=== PATIENT | male | born 1985 | race Caucasian/White ===

== ENCOUNTER 2017-01-01 21:40 | Emergency (ER) | payer SELFPAY ==
[2017-01-01 21:53] VITALS: BP 125/76
[2017-01-01] MEDS ORDERED: Acetaminop/Codeine 30 MG TAB* 1 TAB (300 MG/30 MG) PO ONE (22:01)
[2017-01-01] MEDS ORDERED: Amoxicillin PO (*) 500 MG CAP PO ONE (22:02)
--- NOTE | 2017-01-01 22:07 | UC ---
Dental HPI - HPI Summary HPI Summary: dental pain x 2 days right lower teeth no fever , no chills - History of Current Complaint Chief Complaint: UCDentalProblem Stated Complaint: DENTAL PAIN Time Seen by Provider: 01/01/17 21:58 Hx Obtained From: Patient Onset/Duration: Gradual Onset - 2, Lasting Days, Still Present Severity: Severe Aggravating: Heat, Cold, Chewing Alleviating: Nothing Dental: 1 - dental caries , poor dentation - Allergies/Home Medications Allergies/Adverse Reactions: Allergies Allergy/AdvReac Type Severity Reaction Status Date / Time No Known Allergies Allergy Verified 01/01/17 21:53 PMH/Surg Hx/FS Hx/Imm Hx Previously Healthy: Yes - Surgical History Surgical History: None - Family History Known Family History: Negative: Diabetes - Social History Alcohol Use: None Substance Use Type: None Smoking Status (MU): Heavy Every Day Tobacco Smoker Amount Used/How Often: 1pack per day Length of Time of Smoking/Using Tobacco: age 21 Review of Systems Constitutional: Negative Skin: Negative Eyes: Negative ENT: Dental Pain Respiratory: Negative All Other Systems Reviewed And Are Negative: Yes Physical Exam Triage Information Reviewed: Yes Appearance: Well-Appearing, No Pain Distress, Well-Nourished Vital Signs: Initial Vital Signs Temp 98.9 F 01/01/17 21:48 Pulse 63 01/01/17 21:48 Resp 16 01/01/17 21:48 BP 125/76 01/01/17 21:48 Pulse Ox 99 01/01/17 21:48 Vital Signs Reviewed: Yes Eyes: Positive: Conjunctiva Clear ENT: Positive: Normal ENT inspection, Hearing grossly normal, Pharynx normal Dental: Positive: Gross Decay/Caries @, Cellulitis @. Negative: Dental Fracture @, Abscess @, Bleeding Neck exam: Normal Neck: Positive: Supple, Nontender, No Lymphadenopathy Respiratory Exam: Normal Respiratory: Positive: Chest non-tender, Lungs clear, Normal breath sounds Cardiovascular: Positive: RRR, No Murmur, Pulses Normal Abdominal Exam: Normal Skin Exam: Normal Dental Complaint Course/Dx - Differential Dx/Diagnosis Provider Diagnoses: dental pain Discharge - Discharge Plan Condition: Stable Disposition: HOME Prescriptions: Acetaminop/Codeine 30 MG TAB* [Tylenol/Codeine 30 MG TAB*] 1 tab PO Q8H PRN #15 tab MDD 3 tabs PRN Reason: Pain Amoxicillin (*) 875 mg PO BID #20 tab Patient Education Materials: Toothache (ED) Referrals: No Primary Care Phys,NOPCP [Primary Care Provider] - Additional Instructions: follow up with a dentist [place]
== END 2017-01-01 22:11 | disposition home or self-care (01) ==
LOC: UCCORT 21:40
DX: K02.9 Dental caries, unspecified (principal); K08.89 Other specified disorders of teeth and supporting structures; F17.210 Nicotine dependence, cigarettes, uncomplicated
CPT/HCPCS: 99202; A9270-GY; G0463

== ENCOUNTER 2017-10-27 21:02 | Emergency (ER) | payer SELFPAY ==
[2017-10-27 22:03] VITALS: BP 117/71
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
== END 2017-10-27 22:55 | disposition home or self-care (01) ==
LOC: UCCORT 21:02
DX: S39.91XA Unspecified injury of abdomen, initial encounter (principal); Y04.2XXA Assault by strike against or bumped into by another person, initial encounter; Y93.9 Activity, unspecified; Y92.9 Unspecified place or not applicable; Y99.0 Civilian activity done for income or pay; R11.10 Vomiting, unspecified; F17.210 Nicotine dependence, cigarettes, uncomplicated
CPT/HCPCS: 99211; G0463

== ENCOUNTER 2017-11-25 13:12 | Emergency (ER) | payer SELFPAY ==
--- NOTE | 2017-11-25 13:16 | UC ---
Dental HPI - HPI Summary HPI Summary: 32 year old male presents with right lower molar abscess. - History of Current Complaint Stated Complaint: DENTAL COMPLAINT Time Seen by Provider: 11/25/17 13:16 Hx Obtained From: Patient Onset/Duration: Sudden Onset, Lasting Days Severity: Moderate Pain Scale Used: 0-10 Numeric - 7 - Allergies/Home Medications Allergies/Adverse Reactions: Allergies Allergy/AdvReac Type Severity Reaction Status Date / Time No Known Allergies Allergy Verified 11/25/17 13:33 PMH/Surg Hx/FS Hx/Imm Hx Previously Healthy: Yes - Surgical History Surgical History: None - Family History Known Family History: Negative: Diabetes - Social History Alcohol Use: Occasionally Substance Use Type: None Smoking Status (MU): Heavy Every Day Tobacco Smoker Type: Cigarettes Amount Used/How Often: 1/2 pack per day Length of Time of Smoking/Using Tobacco: age 21 Review of Systems Constitutional: Negative Skin: Negative Eyes: Negative ENT: Dental Pain Respiratory: Negative Cardiovascular: Negative Gastrointestinal: Negative Genitourinary: Negative Motor: Negative Neurovascular: Negative Musculoskeletal: Negative Neurological: Negative Psychological: Negative All Other Systems Reviewed And Are Negative: Yes Physical Exam Triage Information Reviewed: Yes Vital Signs Reviewed: Yes Eye Exam: Normal ENT: Positive: Dental tenderness Dental Exam: Normal Neck exam: Normal Neck: Positive: 1 Respiratory Exam: Normal Cardiovascular Exam: Normal Abdominal Exam: Normal Musculoskeletal Exam: Normal Neurological Exam: Normal Psychological Exam: Normal Skin Exam: Normal Dental Complaint Course/Dx - Differential Dx/Diagnosis Provider Diagnoses: right lower molar abscess Discharge - Discharge Plan Condition: Stable Disposition: HOME Prescriptions: Amoxicillin/Clavulanate TAB* [Augmentin TAB 875*] 875 mg PO BID #20 tab Chlorhexidine MOUTHWASH 0.12%* [Peridex Mouth Wash 0.12%*] 15 ml MT TID #1 btl Magic M W2 Alvaro/Maal/Nyst/Lido* 5 ml SWISH SPIT QID PRN #120 ml PRN Reason: Pain Naproxen [Naprosyn 500 mg] 500 mg PO BID PRN #30 tab PRN Reason: Pain Patient Education Materials: Dental Abscess (ED) Referrals: No Primary Care Phys,NOPCP [Primary Care Provider] -
[2017-11-25 13:40] VITALS: BP 141/71
== END 2017-11-25 13:41 | disposition home or self-care (01) ==
LOC: UCCORT 13:12
DX: K04.7 Periapical abscess without sinus (principal); Z72.0 Tobacco use; Z72.89 Other problems related to lifestyle
CPT/HCPCS: 99212; G0463

== ENCOUNTER 2018-06-14 21:39 | Emergency (ER) | payer OTHER ==
[2018-06-14 21:50] VITALS: BP 122/76
[2018-06-14] MEDS ORDERED: Fluconazole 100 MG TAB* TAB PO ONE (21:56)
--- NOTE | 2018-06-14 22:08 | UC ---
Skin Complaint HPI - HPI Summary HPI Summary: Pt c/o gradual onset of itchy, creamy white, skin between toes. Pt works outside standing in heavy workboots that have recently been getting wet and hot daily for past week. - History of Current Complaint Chief Complaint: UCSkin Time Seen by Provider: 06/14/18 21:51 Stated Complaint: LEFT FOOT COMPLAINT Hx Obtained From: Patient Onset/Duration: Gradual Onset, Lasting Days, Still Present, Worse Since - onset Skin Exposure Onset/Duration: Days Ago Timing: Constant Onset Severity: Mild Current Severity: Moderate Pain Intensity: 0 Location: Discrete, Foot (Right), Foot (Left) Character: Pruritus, Redness Aggravating Factor(s): Wet Conditions, Humidity Alleviating Factor(s): Unknown Associated Signs & Symptoms: Positive: Rash Related History: Possible Reaction to: Environmental Exposure - Allergy/Home Medications Allergies/Adverse Reactions: Allergies Allergy/AdvReac Type Severity Reaction Status Date / Time No Known Allergies Allergy Verified 06/14/18 21:44 Review of Systems Constitutional: Negative Skin: Rash Eyes: Negative ENT: Negative Respiratory: Negative Cardiovascular: Negative Gastrointestinal: Negative Genitourinary: Negative Motor: Negative Neurovascular: Negative Musculoskeletal: Negative Neurological: Negative Psychological: Negative Is Patient Immunocompromised?: No All Other Systems Reviewed And Are Negative: Yes PMH/Surg Hx/FS Hx/Imm Hx Previously Healthy: Yes - Surgical History Surgical History: None - Family History Known Family History: Negative: Diabetes - Social History Occupation: Employed Full-time Lives: With Family Alcohol Use: Occasionally Substance Use Type: None Smoking Status (MU): Heavy Every Day Tobacco Smoker Type: Cigarettes Amount Used/How Often: 1 PPD Length of Time of Smoking/Using Tobacco: age 21 Have You Smoked in the Last Year: Yes Household Exposure Type: Cigarettes Physical Exam Triage Information Reviewed: Yes Appearance: Well-Appearing Vital Signs: Initial Vital Signs Temp 98.2 F 06/14/18 21:45 Pulse 93 06/14/18 21:45 Resp 16 06/14/18 21:45 BP 122/76 06/14/18 21:45 Pulse Ox 100 06/14/18 21:45 Vital Signs Reviewed: Yes Eye Exam: Normal ENT: Positive: Hearing grossly normal Neck exam: Normal Respiratory: Positive: No respiratory distress Musculoskeletal Exam: Normal Neurological Exam: Normal Psychological Exam: Normal Skin Exam: Other - erythematous and creamy white skin between toes bialteral feet, c/o pruritis and tenderness. Course/Dx - Differential Diagnoses - Skin Complaint Differential Diagnoses: Cellulitis, Tinea - Diagnoses Provider Diagnoses: athletes foot. Discharge - Sign-Out/Discharge Documenting (check all that apply): Patient Departure - Discharge Plan Condition: Stable Disposition: HOME Prescriptions: Fluconazole 100 MG TAB* [Diflucan 100 MG TAB*] 100 mg PO DAILY #7 tab Naftifine HCl [Naftin] 2 % EX DAILY #1 tube Patient Education Materials: Athlete's Foot (ED) Referrals: Dinorah Schultz PA [Primary Care Provider] - If Needed - Billing Disposition and Condition Condition: STABLE Disposition: Home Attestation Statement User Type: Provider - I was available for consult. This patient was seen by the [facility]. The patient was not presented to, seen by, or examined by me. -Apolinar
== END 2018-06-14 22:05 | disposition home or self-care (01) ==
LOC: UCCORT 21:39
DX: B35.3 Tinea pedis (principal); F17.210 Nicotine dependence, cigarettes, uncomplicated
CPT/HCPCS: 99212; A9270-GY; G0463

== ENCOUNTER 2020-01-27 20:54 | Emergency (ER) | payer SELFPAY ==
[2020-01-27 21:13] VITALS: BP 122/79
--- NOTE | 2020-01-27 21:42 | UC ---
Hand/Wrist HPI - HPI Summary HPI Summary: Left index finger pain, swelling near finger tip onset one week ago, no injury, no FB reported; colored substance under skin. Pt woke up with symptoms. - History Of Current Complaint Chief Complaint: UCSkin Stated Complaint: LT INDEX FINGER COMPLAINT Time Seen by Provider: 01/27/20 21:14 Hx Obtained From: Patient ?: No Onset/Duration: Sudden Onset, Lasting Days Severity Currently: Severe Pain Intensity: 7 Character Of Pain: Throbbing Aggravating Factor(s): Movement - Allergies/Home Medications Allergies/Adverse Reactions: Allergies Allergy/AdvReac Type Severity Reaction Status Date / Time No Known Allergies Allergy Verified 01/27/20 21:14 Home Medications: Home Medications Acetaminophen [Acetaminophen Extra Strength] 500 mg PO QAM PRN 01/27/20 [ History Confirmed 01/27/20] Cephalexin CAP* [Keflex CAP*] 500 mg PO BID #13 cap 01/27/20 [Rx] Ibuprofen TAB* [Motrin TAB* 800 MG] 800 mg PO Q8H PRN 01/27/20 [History Confirmed 01/27/20] PMH/Surg Hx/FS Hx/Imm Hx Previously Healthy: Yes - Surgical History Surgical History: None - Family History Known Family History: Negative: Diabetes - Social History Alcohol Use: Occasionally Substance Use Type: None Smoking Status (MU): Heavy Every Day Tobacco Smoker Type: Cigarettes Amount Used/How Often: 1 PPD Length of Time of Smoking/Using Tobacco: age 21 Have You Smoked in the Last Year: Yes Household Exposure Type: Cigarettes - Immunization History Most Recent Tetanus Shot: UNKNOWN Review of Systems All Other Systems Reviewed And Are Negative: Yes Skin: Positive: Other - swelling and purulent fulid Is Patient Immunocompromised?: No Physical Exam Triage Information Reviewed: Yes Appearance: Well-Appearing, Well-Nourished, Pain Distress Vital Signs: Initial Vital Signs Temp 98.8 F 01/27/20 21:08 Pulse 104 01/27/20 21:08 Resp 24 01/27/20 21:08 BP 122/79 01/27/20 21:08 Pulse Ox 97 01/27/20 21:08 Vital Signs Reviewed: Yes Eye Exam: Normal ENT Exam: Normal Dental Exam: Normal Neck exam: Normal Respiratory Exam: Normal Respiratory: Positive: Chest non-tender, Lungs clear, Normal breath sounds Cardiovascular Exam: Normal Cardiovascular: Positive: RRR, No Murmur, Pulses Normal Abdominal Exam: Normal Musculoskeletal Exam: Normal Neurological Exam: Normal Psychological Exam: Normal Skin: Positive: Other - area of purulent fulid under the left index finger nail Procedures - Sedation Patient Received Moderate/Deep Sedation with Procedure: No - Incision and Drainage Left Finger Site: left index finger Hand/Wrist Course/Dx - Course Course Of Treatment: hx obtained, exam performed ,meds reviewed, i and d of paonytheresaa performed, patient vomited and was given zofran. advised to soak the finger in warm epsom salt soaks twice and day and take the antibiotic. - Differential Dx/Diagnosis Differential Diagnosis/HQI/PQRI: Paronychia Provider Diagnosis: Paronychia Discharge ED - Sign-Out/Discharge Documenting (check all that apply): Patient Departure All imaging exams completed and their final reports reviewed: No Studies - Discharge Plan Condition: Stable Disposition: HOME Patient Education Materials: Paronychia (ED) Referrals: Dinorah Schultz PA [Primary Care Provider] - Additional Instructions: 1. take the antibiotic as prescribed. 2. soak the fingewr twice a day in warm epsom salt water 3. Follow up if not improving - Billing Disposition and Condition Condition: STABLE Disposition: Home
[2020-01-27] MEDS ORDERED: Ondansetron ODT TAB* 4 MG PO ONE (21:51)
[2020-01-27] MEDS ORDERED: Cephalexin CAP* 500 MG PO ONE (21:52)
== END 2020-01-27 22:03 | disposition home or self-care (01) ==
LOC: UCCORT 20:54
DX: L03.012 Cellulitis of left finger (principal); F17.210 Nicotine dependence, cigarettes, uncomplicated
CPT/HCPCS: 99212; A9270-GY; G0463